=== PATIENT | male | born 1950 | race Caucasian/White ===

== ENCOUNTER 2017-08-09 11:34 | Emergency (ER) | payer MEDICARE, MEDICAID ==
--- NOTE | 2017-08-09 12:08 | ER Document Report ---
ED Respiratory Problem - General Mode of Arrival: Ambulatory Information source: Patient TRAVEL OUTSIDE OF THE [place] IN LAST 30 DAYS: No <DIANA COLEMAN - Last Filed: 08/09/17 14:40> <GUILLAUME BRIDGES - Last Filed: 08/09/17 19:46> - General Chief Complaint: Shortness Of Breath Stated Complaint: SHORTNESS OF BREATH Time Seen by Provider: 08/09/17 12:07 Notes: Patient is a 66 year old male that presents to the emergency department today with complaints of left sided chest pain with associated shortness of breath beginning this morning prior to arrival. Patient has a history of spontaneous pneumothoraces in the past along with a history of COPD and emphysema. Patient states he ate eggs this morning at 0900. Patient denies a cough or history of [place] /CVA. (DIANA COLEMAN) - Related Data Allergies/Adverse Reactions: rofecoxib [From Vioxx] Allergy (Severe, Verified 12/14/15 01:25) PALPITATIONS Sulfa (Sulfonamide Antibiotics) Allergy (Unknown, Verified 12/14/15 01:25) Past Medical History - General Information source: Patient - Social History Smoking Status: Former Smoker - extensive history, stopped smoking after initial pneumothorax Cigarette use (# per day): No Frequency of alcohol use: None Drug Abuse: None Lives with: Family Family History: Reviewed & Not Pertinent - Past Medical History Cardiac Medical History: Reports: Hx Coronary Artery Disease, Hx Heart Attack, Hx Hypertension Pulmonary Medical History: Reports: Hx Bronchitis, Hx COPD, Hx Pneumonia, Other - Hx of spontaneous pneumothoraces Musculoskeltal Medical History: Reports Hx Arthritis Past Surgical History: Reports: Hx Cardiac Catheterization - Immunizations Hx Diphtheria, Pertussis, Tetanus Vaccination: - unknown Hx Pneumococcal Vaccination: 04/30/10 <DIANA COLEMAN - Last Filed: 08/09/17 14:40> Review of Systems - Review of Systems Constitutional: No symptoms reported EENT: No symptoms reported Cardiovascular: See HPI, Chest pain Respiratory: See HPI, Short of breath. denies: Cough Gastrointestinal: No symptoms reported Genitourinary: No symptoms reported Male Genitourinary: No symptoms reported Musculoskeletal: No symptoms reported Skin: No symptoms reported Hematologic/Lymphatic: No symptoms reported Neurological/Psychological: No symptoms reported -: Yes All other systems reviewed and negative <DIANA COLEMAN - Last Filed: 08/09/17 14:40> Physical Exam <DIANA COLEMAN - Last Filed: 08/09/17 14:40> <GUILLAUME BRIDGES - Last Filed: 08/09/17 19:46> - Vital signs Vitals: Resp Pulse Ox 21 H 99 08/09/17 11:45 08/09/17 11:45 - Notes Notes: PHYSICAL EXAM GENERAL: Alert, interacts well. Moderate distress HEAD: Normocephalic, atraumatic. EYES: Pupils equal, round, and reactive to light. Extraocular movements intact. ENT: Oral mucosa moist, tongue midline. NECK: Full range of motion. Supple. Trachea midline. LUNGS: Clear to auscultation bilaterally, no wheezes, rales, or rhonchi. No difference in breath sounds. Tachypneic. Respiratory distress including while sitting upright. HEART: Regular rate and rhythm. No murmurs, gallops, or rubs. ABDOMEN: Soft, epigastric tenderness with palpation. Non-distended. Bowel sounds present in all 4 quadrants. EXTREMITIES: Moves all 4 extremities spontaneously. No edema, radial and dorsalis pedis pulses 2/4 bilaterally. No cyanosis. NEUROLOGICAL: Alert and oriented x3. Normal speech. PSYCH: Normal affect, normal mood. SKIN: Warm, dry, normal turgor. No rashes or lesions noted. (DIANA COLEMAN) Course - Laboratory Result Diagrams: 08/09/17 13:10 08/09/17 13:10 <DIANA COLEMAN - Last Filed: 08/09/17 14:40> - Laboratory Result Diagrams: 08/09/17 13:10 08/09/17 13:10 <GUILLAUME BRIDGES - Last Filed: 08/09/17 19:46> - Re-evaluation Re-evalutation: 08/09/17 13:15 X-ray shows moderate pneumothorax without tension. Patient will have a pigtail catheter placed. Ativan and morphine will be used for pain and anxiety. No procedural sedation will be performed. 08/09/17 14:36 Tolerated procedure well, 8 Fr catheter inserted, gush of air heard, pain and shortness of breath initially improved. Discussed with Dr. Abad, agrees to consult on the patient, is uncertain whether he wants to keep the patient here or transfer due to need for possible pleurodesis. 08/09/17 17:59 Just received a call back from [facility] stating that Dr. Guillaume Ray accepted the patient to the ninth floor bed. They are still waiting to see if there are any beds available and will call us back once that assignment has been made. Currently the physician does not need to talk to me, has accepted the patient based off of the verbal report given by me to nursing and then passed along to him. (GUILLAUME BRIDEGS) - Vital Signs Vital signs: Temp Pulse Resp BP Pulse Ox 97.8 F 11 L 133/50 H 95 08/09/17 11:46 08/09/17 19:02 08/09/17 19:02 08/09/17 19:02 - Laboratory Laboratory results interpreted by me: 08/09/17 08/09/17 13:10 13:10 WBC 11.3 H Seg Neutrophils % 80.4 H Lymphocytes % 12.0 L Absolute Neutrophils 9.1 H Potassium 5.1 H Chloride 97 L Procedures - Chest Tube Left Midclavicular Consent obtained: Yes Chest tube pre-insertion: Sterile PPE donned, Chloraprep applied, Sterile drapes applied Size of [place] Tube (cm): 8 Anesthetic type: 1% Lidocaine mL's of anesthetic: 15 Chest tube post-insertion: Air heller heard, Sutured, Position confirmed w/ CXR, Water seal, Low intermittent suction Chest tube drainage: no Number of attempts: 1 Complications: No <GUILLAUME BRIDGES - Last Filed: 08/09/17 19:46> Critical Care Note - Critical Care Note Total time excluding time spent on procedures (mins): 35 <GUILLAUME BRIDGES - Last Filed: 08/09/17 19:46> Discharge <DIANA COLEMAN - Last Filed: 08/09/17 14:40> <GUILLAUME BRIDGES - Last Filed: 08/09/17 19:46> - Discharge Clinical Impression: Pneumothorax Qualifiers: Pneumothorax type: spontaneous, primary Qualified Code(s): J93.11 - Primary spontaneous pneumothorax Condition: Fair Disposition: [facility] Scribe Attestation: 08/09/17 19:46 I personally performed the services described in the documentation, reviewed and edited the documentation which was dictated to the scribe in my presence, and it accurately records my words and actions. (GUILLAUME BRIDGES) Scribe Documentation - Scribe Written by Lluvia:: Lluvia Mayen, 08/09/2017 1514 acting as scribe for :: Love <DIANA COLEMAN - Last Filed: 08/09/17 14:40>
--- NOTE | 2017-08-09 13:10 | RADIOLOGY REPORT (SQ) ---
EXAM DESCRIPTION: CHEST PA/LAT COMPLETED DATE/TIME: 08/09/2017 12:43 pm REASON FOR STUDY: possible L pneumothorax COMPARISON: December 2015 EXAM PARAMETERS: NUMBER OF VIEWS: two views TECHNIQUE: Digital Frontal and Lateral radiographic views of the chest acquired. RADIATION DOSE: NA LIMITATIONS: none FINDINGS: LUNGS AND PLEURA: A moderate size pneumothorax on the left is identified. The right lung is clear and well expanded. Chronic appearing changes are again identified. Again there is evidence for obstructive lung disease. MEDIASTINUM AND HILAR STRUCTURES: No masses or contour abnormalities. HEART AND VASCULAR STRUCTURES: Heart normal size. No evidence for failure. BONES: No acute findings. HARDWARE: None in the chest. OTHER: No other significant finding. IMPRESSION: Moderate size pneumothorax on the left as noted above. Other findings as noted above COMMENT: Pertinent findings on the imaging study reported as a CRITICAL RESULT to GUILLAUME Schneider t13:02 on 08/09/2017. Category of Critical Result: Left-sided pneumothorax TECHNICAL DOCUMENTATION: JOB ID: [id number] [employer]- All Rights Reserved
[2017-08-09] MEDS ORDERED: LORAZEPAM INJ 2 MG/1 ML VIAL IV ONE (13:14)
[2017-08-09] MEDS ORDERED: MORPHINE SULFATE 10 MG/ML INJ IV ONE ×3 (13:14→18:00)
[2017-08-09 13:23] LABS: ABSOLUTE BASOPHILS # (AUTO) 0.1 10^3/uL (0.0-0.2); ABSOLUTE EOSINOPHILS # (AUTO) 0.1 10^3/uL (0.0-0.6); ABSOLUTE LYMPHOCYTES (AUTO) 1.4 10^3/uL (0.5-4.7); ABSOLUTE MONOCYTES (AUTO) 0.7 10^3/uL (0.1-1.4); ABSOLUTE NEUT (AUTO) 9.1 10^3/uL (1.7-8.2); BASOPHILS % (AUTO) 0.6 % (0-2); EOSINOPHILS % (AUTO) 0.7 % (0-6); HEMATOCRIT 44.1 % (37.9-51.0); HEMOGLOBIN 14.7 g/dL (13.5-17.0); MEAN CORPUSCULAR HEMOGLOBIN 29.9 pg (27.0-33.4); MEAN CORPUSCULAR HGB CONC 33.2 g/dL (32.0-36.0); MEAN CORPUSCULAR VOLUME 90 fl (80-97); MONOCYTES % (AUTO) 6.3 % (3-13); PLATELET COUNT 446 10^3/uL (150-450); RED CELL DISTRIBUTION WIDTH 13.8 % (11.5-14.0); SEGMENTED NEUTROPHILS % (AUTO) 80.4 % (42-78); TOTAL CELLS COUNTED % (AUTO) 100 %; WHITE BLOOD COUNT 11.3 10^3/uL (4.0-10.5)
[2017-08-09 13:44] LABS: ALANINE AMINOTRANSFERASE 37 U/L (21-72); ALBUMIN 4.9 g/dL (3.5-5.0); ALKALINE PHOSPHATASE 69 U/L (38-126); ANION GAP 12 (5-19); ASPARTATE AMINO TRANSFERASE 30 U/L (17-59); BILIRUBIN,DIRECT 0.2 mg/dL (0.0-0.4); BILIRUBIN,TOTAL 0.4 mg/dL (0.2-1.3); BLOOD UREA NITROGEN 10 mg/dL (7-20); CALCIUM 10.2 mg/dL (8.4-10.2); CARBON DIOXIDE 29 mmol/L (22-30); CHLORIDE 97 mmol/L (98-107); CREATINE KINASE 89 U/L (55-170); GLUCOSE 108 mg/dL (75-110); LIPASE 114.5 U/L (23-300); POTASSIUM 5.1 mmol/L (3.6-5.0); SODIUM 138.2 mmol/L (137-145); TOTAL PROTEIN 7.8 g/dL (6.3-8.2)
[2017-08-09 13:54] LABS: CREATINE KINASE MB 1.71 ng/mL (<4.55)
[2017-08-09 13:55] LABS: TROPONIN I < 0.012 ng/mL
[2017-08-09] MEDS ORDERED: ONDANSETRON HCL INJ/PF 4 MG/2 ML SDV IV ONE (14:42)
--- NOTE | 2017-08-09 15:57 | RADIOLOGY REPORT (SQ) ---
EXAM DESCRIPTION: CHEST SINGLE VIEW COMPLETED DATE/TIME: 08/09/2017 3:41 pm REASON FOR STUDY: s/p chest tube COMPARISON: Two-view chest 08/09/2017, 12/16/2015 EXAM PARAMETERS: NUMBER OF VIEWS: One view. TECHNIQUE: Single frontal radiographic view of the chest acquired. RADIATION DOSE: NA LIMITATIONS: None. FINDINGS: LUNGS AND PLEURA: Patient is post placement of a left-sided Heimlich tube over the left up per 2nd rib interspace. No persistent left pneumothorax. No pleural effusion. Lungs are well inflated and hyperlucent from obstructive disease. MEDIASTINUM AND HILAR STRUCTURES: No masses. Contour normal. HEART AND VASCULAR STRUCTURES: Heart normal in size. Normal vasculature. BONES: Osteoporotic HARDWARE: None in the chest. OTHER: No other significant finding. IMPRESSION: Interval placement of a left-sided Heimlich tube. Resolved left pneumothorax. Underlying advanced COPD TECHNICAL DOCUMENTATION: JOB ID: [id number] [employer]- All Rights Reserved
--- NOTE | 2017-08-09 16:10 | PDOC CONSULTATION ---
Consultation Consult Date: 08/09/17 Attending physician:: JHONATHAN LUNDBERG Consult reason:: recurrent left oneumothorax History of Present Illness Admission Date/PCP: 08/09/17 14:55 BRADY RODRIGUEZ MD History of Present Illness: KODY TORRES is a 66 year old male, heavy smoker, quit 2 years ago, who presents with shortness of breath and has a hx of three recurrent left pneumothoraces during the past 2 years. A chest Xray has been done today which revealed a left 60% pneumothorax successfully treated by chest tube insertion by the ER physician. Past Medical History Cardiac Medical History: Reports: Coronary Artery Disease, Myocardial Infarction , Hypertension Pulmonary Medical History: Reports: Bronchitis, Chronic Obstructive Pulmonary Disease (COPD), Pneumonia, Other - Hx of spontaneous pneumothoraces Denies: Asthma Neurological Medical History: Denies: Seizures Musculoskeltal Medical History: Reports: Arthritis Psychiatric Medical History: Denies: Depression Hematology: Denies: Anemia Past Surgical History Past Surgical History: Reports: Cardiac Catheterization Denies: Pacemaker Social History Lives with: Family Smoking Status: Former Smoker - extensive history, stopped smoking after initial pneumothorax Frequency of Alcohol Use: None Hx Recreational Drug Use: No Drugs: None Hx Prescription Drug Abuse: No Family History Family History: Reviewed & Not Pertinent Parental Family History Reviewed: No Children Family History Reviewed: No Sibling(s) Family History Reviewed.: No Medication/Allergy Home Medications: Albuterol Sulfate [Ventolin HFA MDI 18 GM] puff IH PRN 08/09/17 Clopidogrel Bisulfate [Plavix 75 mg Tablet] 75 mg PO DAILY 08/09/17 Fluticasone Propionate [Flonase Nasal [place] 50 Mcg/[place] 16 gm] spray NASL 08/09 Omeprazole 20 mg PO ACBRKFST 08/09/17 Allergies/Adverse Reactions: rofecoxib [From Vioxx] Allergy (Severe, Verified 12/14/15 01:25) PALPITATIONS Sulfa (Sulfonamide Antibiotics) Allergy (Unknown, Verified 12/14/15 01:25) Physical Exam Vital Signs: Temp Pulse Resp BP Pulse Ox 97.8 F 14 153/55 H 94 08/09/17 11:46 08/09/17 15:11 08/09/17 15:11 08/09/17 15:11 General appearance: PRESENT: no acute distress Head exam: PRESENT: atraumatic Mouth exam: PRESENT: dry mucosa Neck exam: PRESENT: full ROM Respiratory exam: PRESENT: clear to auscultation robby - with distant breath sounds, other - chest tube in the left hemithorax Cardiovascular exam: PRESENT: other - NSR GI/Abdominal exam: PRESENT: soft Results Impressions: Chest X-Ray 08/09/17 14:43 IMPRESSION: Interval placement of a left-sided Heimlich tube. Resolved left pneumothorax. Underlying advanced COPD Assessment & Plan - Diagnosis (1) Recurrent spontaneous pneumothorax Is this a current diagnosis for this admission?: Yes - Plan Summary Plan Summary: My recommendation it to transfer the patient to a facility or medical center with Thoracic Surgery expertise as the patient will need to undergo left pleurodesis because of his recurrent, spontaneous pneumothorax
[2017-08-09 19:59] VITALS: BP 174/71
--- NOTE | 2017-08-10 10:27 | EKG REPORT ---
SEVERITY:- ABNORMAL ECG - SINUS TACHYCARDIA RIGHT ATRIAL ABNORMALITY NONSPECIFIC INTRAVENTRICULAR CONDUCTION DELAY ABNRM R PROG, CONSIDER ASMI OR LEAD PLACEMENT : Confirmed by: Gabriela Singh 10-Aug-2017 10:26:34
== END 2017-08-09 20:16 | disposition short-term general hospital (02) ==
LOC: ER 11:34 → UNDOADMIN 14:55 → EH 14:55 → UNDODISIN 19:26
PROC: 0W9B00Z Drainage of Left Pleural Cavity with Drainage Device, Open Approach (ICD-10-PCS; principal; 2017-08-09)
DX: J93.11 Primary spontaneous pneumothorax (principal); R06.02 Shortness of breath; I25.10 Atherosclerotic heart disease of native coronary artery without angina pectoris; I10 Essential (primary) hypertension; J44.9 Chronic obstructive pulmonary disease, unspecified; I25.2 Old myocardial infarction; Z88.2 Allergy status to sulfonamides
CPT/HCPCS: 93005; 96376; 99291; 96374; 96375; 36415; 82553; 82550; 83690; 85025; 80053; 84484; 71046; 71045; 93010; 32551; J2270; J2060; J2405

== ENCOUNTER 2018-04-06 10:03 | Inpatient (IN) | payer MEDICARE, MEDICAID ==
[2018-04-06] MEDS ORDERED: METHYLPREDNISOLONE INJ 500 MG VIAL IV ONE (10:15)
[2018-04-06] MEDS ORDERED: IPRATROPIUM/ALBUTEROL 0.5-2.5 MG/3 ML AMPUL NEB ONE ×2 (10:17→12:33)
--- NOTE | 2018-04-06 10:27 | RADIOLOGY REPORT (SQ) ---
EXAM DESCRIPTION: CHEST SINGLE VIEW COMPLETED DATE/TIME: 04/06/2018 10:17 am REASON FOR STUDY: CP COMPARISON: 08/09/2017 chest films EXAM PARAMETERS: NUMBER OF VIEWS: One view. TECHNIQUE: Single frontal radiographic view of the chest acquired. RADIATION DOSE: NA LIMITATIONS: None. FINDINGS: LUNGS AND PLEURA: 50% pneumothorax right side, with mild right to left mediastinal shift. Findings discussed with Dr. Pickett 04/06/2018, at 1015 hours. Partial collapse right lung. No right pleural fluid Left lung hyperinflated and hyperlucent but clear. Old surgical bette along the left upper hilum. No left pneumothorax or pleural effusion. MEDIASTINUM AND HILAR STRUCTURES: No masses. Contour normal. HEART AND VASCULAR STRUCTURES: Heart normal in size. Normal vasculature. BONES: No acute findings. HARDWARE: None in the chest. OTHER: No other significant finding. IMPRESSION: 50% pneumothorax right side with mild right to left mediastinal shift COMMENT: Pertinent findings on the imaging study reported as a CRITICAL RESULT to ROSEANN PICKETT MD at10:15 on 04/06/2018. Category of Critical Result: 50% right pneumothorax with mild right to left mediastinal shift TECHNICAL DOCUMENTATION: JOB ID: [id number] [employer]- All Rights Reserved Reading location - IP/workstation name: [email or web address]
[2018-04-06] MEDS ORDERED: LIDOCAINE 1%/EPINEPHRINE INJ 20 ML VIAL INJ ONE (10:39)
[2018-04-06 10:45] LABS: ABSOLUTE EOSINOPHILS # (AUTO) 0.1 10^3/uL (0.0-0.6); ABSOLUTE LYMPHOCYTES (AUTO) 2.7 10^3/uL (0.5-4.7); ABSOLUTE MONOCYTES (AUTO) 0.6 10^3/uL (0.1-1.4); ABSOLUTE NEUT (AUTO) 5.7 10^3/uL (1.7-8.2); BASOPHILS % (AUTO) 0.5 % (0-2); EOSINOPHILS % (AUTO) 0.7 % (0-6); HEMOGLOBIN 13.7 g/dL (13.5-17.0); LYMPHOCYTES % (AUTO) 29.3 % (13-45); MEAN CORPUSCULAR HEMOGLOBIN 29.7 pg (27.0-33.4); MEAN CORPUSCULAR HGB CONC 33.5 g/dL (32.0-36.0); MEAN CORPUSCULAR VOLUME 89 fl (80-97); PLATELET COUNT 424 10^3/uL (150-450); RED BLOOD COUNT 4.62 10^6/uL (4.35-5.55); RED CELL DISTRIBUTION WIDTH 15.2 % (11.5-14.0); SEGMENTED NEUTROPHILS % (AUTO) 62.5 % (42-78); TOTAL CELLS COUNTED % (AUTO) 100 %; WHITE BLOOD COUNT 9.1 10^3/uL (4.0-10.5)
[2018-04-06] MEDS ORDERED: METHYLPREDNISOLONE INJ 125 MG/2 ML SDV IV ONE (11:00)
[2018-04-06 11:05] LABS: ALANINE AMINOTRANSFERASE 37 U/L (21-72); ALBUMIN 4.7 g/dL (3.5-5.0); ALKALINE PHOSPHATASE 71 U/L (38-126); ANION GAP 9 (5-19); ASPARTATE AMINO TRANSFERASE 35 U/L (17-59); BILIRUBIN,DIRECT 0.4 mg/dL (0.0-0.4); BILIRUBIN,TOTAL 0.7 mg/dL (0.2-1.3); BLOOD UREA NITROGEN 11 mg/dL (7-20); CALCIUM 9.6 mg/dL (8.4-10.2); CARBON DIOXIDE 30 mmol/L (22-30); CHLORIDE 100 mmol/L (98-107); GLUCOSE 115 mg/dL (75-110); POTASSIUM 4.9 mmol/L (3.6-5.0); SODIUM 139.4 mmol/L (137-145); TOTAL PROTEIN 8.4 g/dL (6.3-8.2)
--- NOTE | 2018-04-06 12:19 | ER Document Report ---
ED General - General Chief Complaint: Respiratory Distress Stated Complaint: SHORTNESS OF BREATH Time Seen by Provider: 04/06/18 10:12 TRAVEL OUTSIDE OF THE [place] IN LAST 30 DAYS: No - HPI Patient complains to provider of: Chest pain Onset: Other - This 67-year-old male presents for evaluation of chest pain which feels like previous pneumothoraxes he has had in the past. He has had 4 on the left which required pleurodesis he has had one in the past on the right but states this feels very much like that. He denies any fevers or chills, abdominal pain diarrhea constipation or other symptoms recently. He is no longer smoker but does have COPD which is known. - Related Data Allergies/Adverse Reactions: rofecoxib [From Vioxx] Allergy (Severe, Verified 12/14/15 01:25) PALPITATIONS Sulfa (Sulfonamide Antibiotics) Allergy (Unknown, Verified 12/14/15 01:25) Past Medical History - General Information source: Patient - Social History Smoking Status: Former Smoker Family History: Reviewed & Not Pertinent - Past Medical History Cardiac Medical History: Reports: Hx Coronary Artery Disease, Hx Heart Attack, Hx Hypertension Pulmonary Medical History: Reports: Hx Bronchitis, Hx COPD, Hx Pneumonia Denies: Hx Asthma Neurological Medical History: Denies: Hx Cerebrovascular Accident, Hx Seizures Renal/ Medical History: Denies: Hx Peritoneal Dialysis Musculoskeletal Medical History: Reports Hx Arthritis Psychiatric Medical History: Denies: Hx Depression Past Surgical History: Reports: Hx Cardiac Catheterization. Denies: Hx Pacemaker - Immunizations Hx Diphtheria, Pertussis, Tetanus Vaccination: - unknown Hx Pneumococcal Vaccination: 04/30/10 Review of Systems - Review of Systems -: Yes All other systems reviewed and negative Physical Exam - Vital signs Interpretation: Hypertensive - General General appearance: Appears well In distress: None - HEENT Head: Normocephalic Eyes: Normal Conjunctiva: Normal Cornea: Normal Extraocular movements intact: Yes Eyelashes: Normal Pupils: PERRL - Respiratory Respiratory status: Pursed lip breathing, Tachypnea Chest status: Tender Breath sounds: Decreased air movement Chest palpation: Normal - Cardiovascular Rhythm: Regular Heart sounds: Normal auscultation Murmur: No - Abdominal Inspection: Normal Distension: No distension Tenderness: Nontender Organomegaly: No organomegaly - Back Back: Normal - Extremities General upper extremity: Normal inspection, Nontender, Normal ROM, Normal strength General lower extremity: Normal inspection, Nontender, Normal ROM, Normal strength - Neurological Neuro grossly intact: Yes Cognition: Normal Orientation: AAOx4 Dianna Coma Scale Eye Opening: Spontaneous Mcgregor Coma Scale Verbal: Oriented Dianna Coma Scale Motor: Obeys Commands Dianna Coma Scale Total: 15 Speech: Normal Cranial nerves: Normal Motor strength normal: LUE, RUE, LLE, RLE - Psychological Associated symptoms: Normal affect Course - Re-evaluation Re-evalutation: 04/06/18 12:58 5-year-old man presents for evaluation of chest pain similar to previous pneumothoraxes. On examination the patient does have what appears to be a right-sided pneumothorax, chest x-ray demonstrates right-sided pneumothorax, will obtain EKG administer nebulization as he does have COPD which is known. Due to the unusually high volume in the emergency department have contacted the surgical list in house Dr. Singh for evaluation the patient, he agrees to chest tube placement admission at this time. We will defer transfer. We will plan for chest tube placement and admission to the surgical service. - Laboratory Result Diagrams: 04/06/18 10:28 04/06/18 10:28 Laboratory results interpreted by me: 04/06/18 04/06/18 10:28 10:28 RDW 15.2 H Glucose 115 H Total Protein 8.4 H Discharge - Discharge Clinical Impression: Shortness of breath, Recurrent spontaneous pneumothorax Pneumothorax Qualifiers: Pneumothorax type: unspecified pneumothorax Qualified Code(s): J93.9 - Pneumothorax, unspecified Condition: Stable Disposition: ADMITTED INPATIENT Admitting Provider: Surgicalist Unit Admitted: Surgical Floor
[2018-04-06] MEDS ORDERED: LIDOCAINE 1% INJ-PF (10 MG/ML) 30 ML SDV ONE (12:23)
[2018-04-06] MEDS ORDERED: MIDAZOLAM 2 MG/2 ML INJ IV ONE (12:35)
[2018-04-06] MEDS ORDERED: FENTANYL CITRATE INJ/PF 100 MCG/2 ML AMPUL IV ONE (12:36)
[2018-04-06] MEDS ORDERED: MORPHINE SULFATE 10 MG/ML INJ IV PRN (13:07)
--- NOTE | 2018-04-06 13:59 | PDOC H&P ---
History of Present Illness Admission Date/PCP: 04/06/18 12:36 BRADY RODRIGUEZ MD History of Present Illness: KODY TORRES is a 67 year old male with a long history of spontaneous pneumothoraces and COPD. Patient has had several chest tubes inserted on the left and one previous chest tube on the right side. Patient has had a pleurodesis on the left as well. Patient reports feeling a sharp pain in his right chest and having shortness of breath. He presented to the emergency department because he was suspicious that his "lung may be collapsed". The patient reports chest pain shortness of breath. He denies headache, fevers, chills, nausea, vomiting, melena, hematochezia, abdominal pain, orthostasis, dizziness, blurry vision, malaise, or fatigue. Deep inspiration makes his pain worse, nothing makes it better. Past Medical History Cardiac Medical History: Reports: Coronary Artery Disease, Myocardial Infarction , Hypertension Pulmonary Medical History: Reports: Bronchitis, Chronic Obstructive Pulmonary Disease (COPD), Pneumonia Denies: Asthma Neurological Medical History: Denies: Seizures Musculoskeltal Medical History: Reports: Arthritis Psychiatric Medical History: Denies: Depression Hematology: Denies: Anemia Past Surgical History Past Surgical History: Reports: Cardiac Catheterization, Other - Pleurodesis left lung. Multiple thoracostomy tube placements. Denies: Pacemaker Social History Information Source: Patient Smoking Status: Former Smoker Frequency of Alcohol Use: None Hx Recreational Drug Use: No Drugs: None Hx Prescription Drug Abuse: No Family History Family History: Reviewed & Not Pertinent Parental Family History Reviewed: Yes Children Family History Reviewed: Yes Sibling(s) Family History Reviewed.: Yes Medication/Allergy Home Medications: Albuterol Sulfate [Ventolin HFA MDI 18 GM] puff IH PRN 08/09/17 Clopidogrel Bisulfate [Plavix 75 mg Tablet] 75 mg PO DAILY 08/09/17 Fluticasone Propionate [Flonase Nasal [place] 50 Mcg/[place] 16 gm] spray NASL 08/09 Omeprazole 20 mg PO ACBRKFST 08/09/17 Allergies/Adverse Reactions: rofecoxib [From Vioxx] Allergy (Severe, Verified 12/14/15 01:25) PALPITATIONS Sulfa (Sulfonamide Antibiotics) Allergy (Unknown, Verified 12/14/15 01:25) Review of Systems Constitutional: ABSENT: anorexia, chills, fatigue, fever(s), headache(s), weakness Eyes: ABSENT: visual disturbances Ears: ABSENT: hearing changes Nose, Mouth, and Throat: ABSENT: sore throat Cardiovascular: PRESENT: chest pain, orthropnea, palpitations Respiratory: PRESENT: cough, dyspnea Gastrointestinal: ABSENT: abdominal pain, bloating, constipation, diarrhea, heartburn, hematemesis, hematochezia, melena, nausea, vomiting Genitourinary: ABSENT: dysuria Musculoskeletal: PRESENT: back pain Integumentary: ABSENT: pruritus, rash Neurological: ABSENT: abnormal gait, abnormal movements, confusion, convulsions , dizziness, paresthesias Psychiatric: ABSENT: anxiety, depression Endocrine: ABSENT: cold intolerance, heat intolerance Hematologic/Lymphatic: ABSENT: easy bleeding, easy bruising Physical Exam Vital Signs: Temp Pulse Resp BP Pulse Ox 98 14 132/69 H 100 04/06/18 12:40 04/06/18 13:01 04/06/18 13:01 04/06/18 13:01 General appearance: PRESENT: no acute distress Head exam: PRESENT: atraumatic, normocephalic Eye exam: PRESENT: EOMI, PERRLA. ABSENT: scleral icterus Mouth exam: PRESENT: moist, neck supple Teeth exam: PRESENT: poor dentation Neck exam: ABSENT: lymphadenopathy, meningismus, tenderness, thyromegaly, tracheal deviation Respiratory exam: PRESENT: clear to auscultation robby, wheezes. ABSENT: accessory muscle use, chest wall tenderness Cardiovascular exam: PRESENT: RRR Pulses: PRESENT: normal radial pulses Vascular exam: PRESENT: normal capillary refill. ABSENT: pallor GI/Abdominal exam: PRESENT: soft. ABSENT: distended, firm, guarding, tenderness Rectal exam: PRESENT: deferred Extremities exam: ABSENT: clubbing, pedal edema Musculoskeletal exam: ABSENT: deformity Neurological exam: PRESENT: alert, awake, oriented to person, oriented to place , oriented to time, oriented to situation, CN II-XII grossly intact. ABSENT: motor sensory deficit Psychiatric exam: ABSENT: agitated, anxious, depressed Focused psych exam: ABSENT: delusional Skin exam: ABSENT: cyanosis, erythema, jaundice, pallor Assessment & Plan - Diagnosis (1) Recurrent spontaneous pneumothorax Is this a current diagnosis for this admission?: Yes - Plan Summary Plan Summary: This is a 67-year-old male with a recurrent right-sided spontaneous pneumothorax. I have placed a chest tube in the emergency department. The patient will require inpatient admission for monitoring of the chest tube. Patient had a small air leak after tube placement today. I have discussed with the patient the need for possible pleurodesis on the right. That procedure is not performed at this hospital. Currently the patient does not wish to be transferred to another facility. He wishes to give the tube time to perform its work, with transfer used as a last resort. I will abide by the patient's wishes and admitted to the floor. Continue pain medications. Chest tube to 20 cm of water suction.
--- NOTE | 2018-04-06 14:05 | Operative Report ---
Nonrecallable Operative Report DATE OF SURGERY: 04/06/18 PREOPERATIVE DIAGNOSIS: Recurrent spontaneous right-sided pneumothorax POSTOPERATIVE DIAGNOSIS: Same as above OPERATION: Right tube thoracostomy SURGEON: SRUTHI PACHECO ANESTHESIA: Moderate Sedation TISSUE REMOVED OR ALTERED: None COMPLICATIONS: None apparent ESTIMATED BLOOD LOSS: Minimal PROCEDURE: Drains/implants: 28 Arabic chest tube. Procedure in detail: After informed consent was obtained, the patient was sat in the upright position in the emergency department. 6 mg of Versed and 100 mcg of fentanyl were administered over the course of the procedure. The area of the right chest was prepped and draped in a normal sterile fashion. 1% lidocaine was used to infiltrate the skin of the lateral chest wall at the mid axillary line. An incision was created in the skin. Dissection was carried down to the chest wall using blunt dissection. A Negrita clamp was used over top of a rib to enter the chest wall bluntly. The Negrita was spread and a large heller of air was encountered. The chest tube was inserted after a finger sweep was performed. The chest tube was directed superiorly and posteriorly. The tube was sutured to the skin using 0 silk suture 2. A dressing was placed, and the procedure was concluded. The tube was attached to a Pleur-evac which provided 20 cm of water suction. At this time the procedure was concluded. All sponge, instrument, and needle counts were correct. Condition: Stable.
--- NOTE | 2018-04-06 14:19 | RADIOLOGY REPORT (SQ) ---
EXAM DESCRIPTION: CHEST SINGLE VIEW COMPLETED DATE/TIME: 04/06/2018 1:55 pm REASON FOR STUDY: chest tube insertion COMPARISON: Chest films 04/06/2018 1010 hours, 08/09/2017, 12/16/2015 EXAM PARAMETERS: NUMBER OF VIEWS: One view. TECHNIQUE: Single frontal radiographic view of the chest acquired. RADIATION DOSE: NA LIMITATIONS: None. FINDINGS: LUNGS AND PLEURA: Lungs are hyperinflated and hyperlucent from obstructive disease. Resol ution of the right pneumothorax with placement of a right large bore chest tube. MEDIASTINUM AND HILAR STRUCTURES: No significant mediastinal shift HEART AND VASCULAR STRUCTURES: Heart normal in size. Normal vasculature. BONES: No acute findings. HARDWARE: Right large bore chest tube. No pneumothorax OTHER: No other significant finding. IMPRESSION: Right large bore chest tube. No pneumothorax TECHNICAL DOCUMENTATION: JOB ID: [id number] [employer]- All Rights Reserved Reading location - IP/workstation name: [email or web address]
[2018-04-06] MEDS: OXYCODONE-ACETAMINOPHEN 5-325 MG TABLET PO PRN (18:13)
[2018-04-07] MEDS ORDERED: ALBUTEROL SULFATE HFA (90 MCG/PUFF) 8 GM MDI (1 MDI/ER DISP) IH PRN (02:25)
[2018-04-07] MEDS ORDERED: ALBUTEROL SULFATE HFA (90 MCG/PUFF) 200 PUFF/8.5 GM MDI IH PRN (02:34)
--- NOTE | 2018-04-07 05:18 | EKG REPORT ---
SEVERITY:- ABNORMAL ECG - SINUS RHYTHM RIGHT ATRIAL ABNORMALITY RBBB AND LPFB : Confirmed by: Gabriela Singh 07-Apr-2018 05:18:10
[2018-04-07] MEDS: LANSOPRAZOLE 15 MG TAB.RAP.DR PO SCH (05:30)
[2018-04-07] MEDS: OXYCODONE-ACETAMINOPHEN 5-325 MG TABLET PO PRN (06:18)
[2018-04-07] MEDS ORDERED: (PENDING PHARMACY ID) (Tiotropium Bromide [Spiriva Respimat] 2 PUFF) IH SCH (08:00)
[2018-04-07] MEDS: ENOXAPARIN SODIUM INJ 40 MG/0.4 ML DISP.SYRIN SUBCUT SCH (09:17)
[2018-04-07] MEDS: AMLODIPINE BESYLATE 2.5 MG TABLET PO SCH (09:19)
[2018-04-07] MEDS: CLOPIDOGREL BISULFATE 75 MG TABLET PO SCH (09:20)
[2018-04-07] MEDS: OMEGA-3 ACID ETHYL ESTERS 1 GM CAPSULE PO SCH (09:20)
[2018-04-07] MEDS: ACETAMINOPHEN 325 MG TABLET PO SCH ×2 (09:20→23:32)
--- NOTE | 2018-04-07 09:47 | RADIOLOGY REPORT (SQ) ---
EXAM DESCRIPTION: CHEST SINGLE VIEW COMPLETED DATE/TIME: 04/07/2018 9:30 am REASON FOR STUDY: PTX COMPARISON: 04/06/2018 NUMBER OF VIEWS: One view. TECHNIQUE: Single frontal radiographic image of the chest acquired. LIMITATIONS: None. FINDINGS: LUNGS AND PLEURA: Stable appearance. Right-sided chest tube remains in place. No pneumot horax is identified. MEDIASTINUM AND HILAR STRUCTURES: Stable heart size and mediastinal structures. HEART AND VASCULAR STRUCTURES: Stable appearance. BONES: No acute findings. HARDWARE: None in the chest. OTHER: No other significant finding. IMPRESSION: STABLE APPEARANCE OF THE CHEST. TECHNICAL DOCUMENTATION: JOB ID: [id number] [employer]- All Rights Reserved Reading location - IP/workstation name: [email or web address]
[2018-04-07] MEDS ORDERED: C E ZINC COPPER PO SCH (10:00)
[2018-04-07] MEDS ORDERED: LUT PO SCH (10:00)
[2018-04-07] MEDS ORDERED: (PENDING PHARMACY ID) (Omega-3 Fatty Acids/Fish Oil [Fish Oil 1,000 Mg Capsule] 1 EACH) PO SCH (10:00)
[2018-04-07] MEDS ORDERED: (PENDING PHARMACY ID) (Acetaminophen [Tylenol Arthritis 650 Mg Tablet] 650 MG) PO SCH (10:00)
[2018-04-07] MEDS ORDERED: OMEGA3S PO SCH (10:00)
[2018-04-07] MEDS ORDERED: [UNRECOGNIZED DRUG - OTHER] PO SCH (10:00)
[2018-04-07] MEDS: ALBUTEROL SULFATE 0.083% NEB 2.5 MG/3 ML AMPUL NEB PRN (15:01)
[2018-04-07] MEDS: ALPRAZOLAM 0.25 MG TABLET PO PRN (16:05)
[2018-04-07] MEDS: DOCUSATE SODIUM 100 MG CAPSULE PO PRN (17:38)
[2018-04-07] MEDS: ACETAMINOPHEN 325 MG TABLET PO PRN (17:38)
[2018-04-07] MEDS: FLUTICASONE NASAL SPRAY 50 MCG/SPRY 120 SPRAY/16 GM NASL SCH (17:39)
--- NOTE | 2018-04-07 17:51 | PDOC PROGRESS REPORT ---
Subjective Progress Note for:: 04/07/18 Subjective:: Pains at the chest tube site Reason For Visit: SPONTANEOUS PTX Physical Exam Vital Signs: Temp Pulse Resp BP Pulse Ox 97.7 F 78 20 133/46 H 94 04/07/18 12:13 04/07/18 14:57 04/07/18 14:57 04/07/18 12:13 04/07/18 14:57 Intake & Output 04/06/18 04/07/18 04/08/18 06:59 06:59 06:59 Intake Total 500 Output Total 150 Balance 350 Weight 52.163 kg Exam: Chest tube with no air leak. Minimal serosanguinous drainage Results Impressions: Chest X-Ray 04/07/18 06:00 IMPRESSION: STABLE APPEARANCE OF THE CHEST. Assessment & Plan - Diagnosis (1) Recurrent spontaneous pneumothorax Is this a current diagnosis for this admission?: Yes - Time Time Spent with patient: 15-24 minutes - Inpatient Certification Medical Necessity: Need Close Monitoring Due to Risk of Patient Decompensation, Need For Continuous Telemetry Monitoring, Need for Pain Control, Risk of Complication if Not Cared For in Hospital - Plan Summary Plan Summary: Right lung appears fully re-expanded D/C chest tube suction and repeat CXR in am Possible D/C Chest tube in 24-48 hrs.
[2018-04-08] MEDS: ALBUTEROL SULFATE 0.083% NEB 2.5 MG/3 ML AMPUL NEB PRN ×2 (04:33→13:18)
[2018-04-08] MEDS: LANSOPRAZOLE 15 MG TAB.RAP.DR PO SCH (05:56)
[2018-04-08] MEDS: OXYCODONE-ACETAMINOPHEN 5-325 MG TABLET PO PRN (05:56)
[2018-04-08] MEDS: DOCUSATE SODIUM 100 MG CAPSULE PO PRN (05:56)
[2018-04-08] MEDS: CLOPIDOGREL BISULFATE 75 MG TABLET PO SCH (09:16)
[2018-04-08] MEDS: ACETAMINOPHEN 325 MG TABLET PO SCH ×2 (09:16→21:51)
[2018-04-08] MEDS: OMEGA-3 ACID ETHYL ESTERS 1 GM CAPSULE PO SCH (09:16)
[2018-04-08] MEDS: AMLODIPINE BESYLATE 2.5 MG TABLET PO SCH (09:16)
[2018-04-08] MEDS: ENOXAPARIN SODIUM INJ 40 MG/0.4 ML DISP.SYRIN SUBCUT SCH (09:17)
[2018-04-08] MEDS: POLYETHYLENE GLYCOL 3350 POWDER 17 GM/1 PACKET PO PRN (09:33)
--- NOTE | 2018-04-08 09:39 | RADIOLOGY REPORT (SQ) ---
EXAM DESCRIPTION: CHEST SINGLE VIEW COMPLETED DATE/TIME: 04/08/2018 9:21 am REASON FOR STUDY: chest tube right pneumothorax COMPARISON: 04/07/2018. 12/16/2015. NUMBER OF VIEWS: One view. TECHNIQUE: Single frontal radiographic view of the chest acquired. LIMITATIONS: None. FINDINGS: LUNGS AND PLEURA: COPD with apical scar, as before. Small persistent apical pneumothorax is likely, chest tube in place without change. MEDIASTINUM AND HILAR STRUCTURES: No masses. Contour normal. HEART AND VASCULAR STRUCTURES: Heart normal in size. Normal vasculature. BONES: No acute findings. HARDWARE: None in the chest. OTHER: No other significant finding. IMPRESSION: Stable chest. Chest tube remains in place with suspected small persistent right apical pneumothorax. TECHNICAL DOCUMENTATION: JOB ID: [id number] [employer]- All Rights Reserved Reading location - IP/workstation name: [email or web address]
--- NOTE | 2018-04-08 10:49 | PDOC PROGRESS REPORT ---
Subjective Progress Note for:: 04/08/18 Subjective:: No complaints; poor cough Reason For Visit: SPONTANEOUS PTX Physical Exam Vital Signs: Temp Pulse Resp BP Pulse Ox 97.9 F 92 18 147/74 H 98 04/08/18 07:58 04/08/18 07:58 04/08/18 07:58 04/08/18 07:58 04/08/18 07:58 Intake & Output 04/07/18 04/08/18 04/09/18 06:59 06:59 06:59 Intake Total 500 200 Output Total 150 Balance 350 200 Weight 52.163 kg General appearance: PRESENT: no acute distress Respiratory exam: PRESENT: other - Accessory muscles of respiration deployed; lung sounds clear bilaterally; chest tube interrogated; minimal fluid in drain receptacle; no fluctuation , no air leak Results Impressions: Chest X-Ray 04/08/18 07:00 IMPRESSION: Stable chest. Chest tube remains in place with suspected small persistent right apical pneumothorax. Assessment & Plan - Diagnosis (1) Pneumothorax Qualifiers: Pneumothorax type: unspecified pneumothorax Qualified Code(s): J93.9 - Pneumothorax, unspecified Is this a current diagnosis for this admission?: Yes Plan: Impression: 1. Status post right thoracostomy tube placement for recurrent right sided pneumothorax; today's chest x-ray shows lung expanded; no air leak; no fluctuation in chest tube 2. We will place chest tube to waterseal; follow clinically; repeat chest x- ray this evening, PA and lateral. 3. If patient fails thoracostomy tube management, VATS procedure may be required. This was explained to the patient.
[2018-04-08] MEDS: ACETAMINOPHEN 325 MG TABLET PO PRN (15:58)
[2018-04-08] MEDS ORDERED: BISACODYL 10 MG SUPP.RECT PR ONE (17:00)
--- NOTE | 2018-04-08 19:34 | RADIOLOGY REPORT (SQ) ---
EXAM DESCRIPTION: CHEST 2 VIEWS COMPLETED DATE/TIME: 04/08/2018 7:13 pm REASON FOR STUDY: Interval change in right pneumothorax COMPARISON: 04/08/2018 EXAM PARAMETERS: NUMBER OF VIEWS: two views TECHNIQUE: Digital Frontal and Lateral radiographic views of the chest acquired. RADIATION DOSE: NA LIMITATIONS: none FINDINGS: LUNGS AND PLEURA: Lungs are hyperexpanded. No residual pneumothorax is appreciated. No i nfiltrate or effusion. MEDIASTINUM AND HILAR STRUCTURES: No masses or contour abnormalities. HEART AND VASCULAR STRUCTURES: Heart normal size. No evidence for failure. BONES: No acute findings. HARDWARE: Thoracotomy tube on the right. OTHER: No other significant finding. IMPRESSION: Chronic lung changes. Thoracotomy tube remains in place. TECHNICAL DOCUMENTATION: JOB ID: [id number] [employer]- All Rights Reserved Reading location - IP/workstation name: [email or web address]
[2018-04-08] MEDS: ONDANSETRON 4 MG TAB.RAPDIS PO PRN (20:10)
[2018-04-08] MEDS: FLUTICASONE NASAL SPRAY 50 MCG/SPRY 120 SPRAY/16 GM NASL SCH (20:13)
[2018-04-09] MEDS: ACETAMINOPHEN 325 MG TABLET PO PRN (04:15)
[2018-04-09] MEDS: DOCUSATE SODIUM 100 MG CAPSULE PO PRN (06:54)
[2018-04-09] MEDS: LANSOPRAZOLE 15 MG TAB.RAP.DR PO SCH (06:54)
[2018-04-09] MEDS: ENOXAPARIN SODIUM INJ 40 MG/0.4 ML DISP.SYRIN SUBCUT SCH (09:06)
--- NOTE | 2018-04-09 09:26 | RADIOLOGY REPORT (SQ) ---
EXAM DESCRIPTION: CHEST 2 VIEWS COMPLETED DATE/TIME: 04/09/2018 9:12 am REASON FOR STUDY: f/u ptx COMPARISON: 04/08/2018. FINDINGS: Two view chest, portably obtained AP and lateral. Chest tube to the right apex. Artifact versus persistent tiny apical pneumothorax. Lungs otherwise clear. Stable cardiomediastinal silhouette. IMPRESSION: As above. Thoracostomy tube remains in place. Tiny persistent apical pneumothorax is n ot entirely excluded. TECHNICAL DOCUMENTATION: JOB ID: [id number] Reading location - IP/workstation name: [email or web address]
[2018-04-09] MEDS: ALBUTEROL SULFATE 0.083% NEB 2.5 MG/3 ML AMPUL NEB PRN ×2 (09:34→20:22)
[2018-04-09] MEDS: CLOPIDOGREL BISULFATE 75 MG TABLET PO SCH (10:12)
[2018-04-09] MEDS: ACETAMINOPHEN 325 MG TABLET PO SCH ×2 (10:12→21:10)
[2018-04-09] MEDS: AMLODIPINE BESYLATE 2.5 MG TABLET PO SCH (10:12)
[2018-04-09] MEDS: OMEGA-3 ACID ETHYL ESTERS 1 GM CAPSULE PO SCH (10:12)
[2018-04-09] MEDS ORDERED: BISACODYL 10 MG SUPP.RECT PR ONE (11:00)
[2018-04-09] MEDS: ONDANSETRON 4 MG TAB.RAPDIS PO PRN (13:36)
[2018-04-09] MEDS: POLYETHYLENE GLYCOL 3350 POWDER 17 GM/1 PACKET PO PRN (15:35)
[2018-04-09] MEDS: OXYCODONE-ACETAMINOPHEN 5-325 MG TABLET PO PRN (15:35)
--- NOTE | 2018-04-09 16:00 | PDOC PROGRESS REPORT ---
Subjective Progress Note for:: 04/09/18 Subjective:: This is a 67-year-old male with a spontaneous right-sided pneumothorax. The patient underwent tube thoracostomy in the emergency department. Today, he reports pain in the upper portion of his right chest. He denies shortness of breath. He denies abdominal pain, dizziness, orthostasis, fatigue, malaise, blurry vision, headache. Reason For Visit: SPONTANEOUS PTX Physical Exam Vital Signs: Temp Pulse Resp BP Pulse Ox 98.4 F 97 16 150/61 H 94 04/09/18 11:30 04/09/18 11:30 04/09/18 11:30 04/09/18 11:30 04/09/18 11:30 Intake & Output 04/08/18 04/09/18 04/10/18 06:59 06:59 06:59 Intake Total 200 577 Balance 200 577 Weight 57.2 kg 56 kg General appearance: PRESENT: no acute distress, cooperative Head exam: PRESENT: atraumatic, normocephalic Eye exam: PRESENT: EOMI, PERRLA. ABSENT: scleral icterus Mouth exam: PRESENT: moist, neck supple Neck exam: ABSENT: lymphadenopathy, meningismus, tenderness, thyromegaly, tracheal deviation Respiratory exam: PRESENT: crackles, other - Right chest tube in place with obvious air leak today. Currently on waterseal.. ABSENT: accessory muscle use , chest wall tenderness, wheezes Cardiovascular exam: PRESENT: RRR Pulses: PRESENT: normal radial pulses Vascular exam: PRESENT: normal capillary refill. ABSENT: pallor GI/Abdominal exam: PRESENT: soft. ABSENT: distended, tenderness Extremities exam: ABSENT: clubbing, pedal edema Musculoskeletal exam: ABSENT: deformity Neurological exam: PRESENT: alert, awake, oriented to person, oriented to place , oriented to time, oriented to situation, CN II-XII grossly intact. ABSENT: motor sensory deficit Psychiatric exam: ABSENT: agitated, anxious, depressed Focused psych exam: ABSENT: delusional Skin exam: ABSENT: cyanosis, erythema, jaundice Results Impressions: Chest X-Ray 04/09/18 07:00 IMPRESSION: As above. Thoracostomy tube remains in place. Tiny persistent apical pneumothorax is not entirely excluded. Assessment & Plan - Diagnosis (1) Recurrent spontaneous pneumothorax Is this a current diagnosis for this admission?: Yes - Plan Summary Plan Summary: This is a 67-year-old male with a recurrent right spontaneous pneumothorax. The patient does have an air leak on exam today. I will order a CT scan to evaluate the chest tube's placement, to ensure that it is evacuating the pleural space adequately. If there is no resolution of his pneumothorax, he may require transfer for thoracic surgery evaluation.
--- NOTE | 2018-04-09 17:03 | RADIOLOGY REPORT (SQ) ---
EXAM DESCRIPTION: CT CHEST WITHOUT COMPLETED DATE/TIME: 04/09/2018 4:53 pm REASON FOR STUDY: spontaneous right PTX. Evaluate for blebs. COMPARISON: Multiple previous chest films dating back to 2007, most recently 04/09/2018 TECHNIQUE: CT scan performed of the chest without intravenous contrast. Images reviewed with lung, soft tissue and bone windows. Reconstructed coronal and sagittal MPR images reviewed. All images st ored on PACS. All CT scanners at this facility use dose modulation, iterative reconstruction, and/or weight based d osing when appropriate to reduce radiation dose to as low as reasonably achievable (ALARA). [facility]: Dose Right [facility]: CareDose [facility]: Dose Right [facility]: Teradose 4D [facility]: [employer] RADIATION DOSE: CT Rad equipment meets quality standard of care and radiation dose reduction techniq ues were employed. CTDIvol: 7.0 mGy. DLP: 302 mGy-cm. mGy. LIMITATIONS: No technical limitations. FINDINGS: LUNGS AND PLEURA: A right-sided large bore chest tube is present with the tip at the apex right hemithorax. There a persistent tiny anterior pneumothorax. Minimal right chest wall air. Bibasilar atelectasis is present right greater than left. No pleural effusions. There scarring at the bilateral lung apices and in the superior segments of the bilateral lower lobes . HILAR AND MEDIASTINAL STRUCTURES: No identified masses or abnormal nodes. No obvious aneurysm. HEART AND VASCULAR STRUCTURES: No aneurysm. No pericardial effusion. Enlarged main pulmonary artery from pulmonary hypertension UPPER ABDOMEN: No significant findings. Limited exam. THYROID AND OTHER SOFT TISSUES: No masses. No adenopathy. BONES: No significant finding. HARDWARE: Right chest tube OTHER: No other significant findings. IMPRESSION: No large bullae or blebs are identified. Bibasilar atelectasis. Tiny right anterior pneumothorax. Right chest tube in good positioning Biapical scarring with nodular scarring in the bilateral superior segments lower lobes. TECHNICAL DOCUMENTATION: JOB ID: [id number] Quality ID # [id number]: Final reports with documentation of one or more dose reduction techniques (e.g., Au tomated exposure control, adjustment of the mA and/or kV according to patient size, use of iterative reconstruction technique) 2010 [employer]- All Rights Reserved Reading location - IP/workstation name: [email or web address]
[2018-04-09] MEDS: FLUTICASONE NASAL SPRAY 50 MCG/SPRY 120 SPRAY/16 GM NASL SCH (17:42)
[2018-04-10] MEDS: OXYCODONE-ACETAMINOPHEN 5-325 MG TABLET PO PRN ×2 (05:48→17:31)
[2018-04-10] MEDS: LANSOPRAZOLE 15 MG TAB.RAP.DR PO SCH (05:49)
[2018-04-10] MEDS: DOCUSATE SODIUM 100 MG CAPSULE PO PRN (05:49)
[2018-04-10] MEDS: ALBUTEROL SULFATE 0.083% NEB 2.5 MG/3 ML AMPUL NEB PRN ×2 (08:24→17:55)
--- NOTE | 2018-04-10 08:31 | RADIOLOGY REPORT (SQ) ---
EXAM DESCRIPTION: CHEST SINGLE VIEW COMPLETED DATE/TIME: 04/10/2018 8:18 am REASON FOR STUDY: chest tube right pneumothorax COMPARISON: 04/09/2018 EXAM PARAMETERS: NUMBER OF VIEWS: One view. TECHNIQUE: Single frontal radiographic view of the chest acquired. RADIATION DOSE: NA LIMITATIONS: None. FINDINGS: LUNGS AND PLEURA: Stable small right apical-upper lobe pneumothorax. Findings of COPD. Stable right apical-bilateral lower lobe scarring/fibrosis. No pleural effusion. MEDIASTINUM AND HILAR STRUCTURES: No masses. Contour normal. HEART AND VASCULAR STRUCTURES: Heart normal in size. Normal vasculature. BONES: No acute findings. HARDWARE: Right chest tube remains in place. OTHER: No other significant finding. IMPRESSION: 1. No significant interval changes since the prior study dated 04/09/2018. Right chest tube remains in place. Stable small right anterior pneumothorax. TECHNICAL DOCUMENTATION: JOB ID: [id number] [employer]- All Rights Reserved Reading location - IP/workstation name: [email or web address]
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
[2018-04-10] MEDS: CLOPIDOGREL BISULFATE 75 MG TABLET PO SCH (09:28)
[2018-04-10] MEDS: ACETAMINOPHEN 325 MG TABLET PO SCH ×2 (09:28→21:56)
[2018-04-10] MEDS: OMEGA-3 ACID ETHYL ESTERS 1 GM CAPSULE PO SCH (09:28)
[2018-04-10] MEDS: ENOXAPARIN SODIUM INJ 40 MG/0.4 ML DISP.SYRIN SUBCUT SCH (09:29)
[2018-04-10] MEDS: AMLODIPINE BESYLATE 2.5 MG TABLET PO SCH (09:29)
[2018-04-10 11:07] LABS: ABSOLUTE EOSINOPHILS # (AUTO) 0.1 10^3/uL (0.0-0.6); ABSOLUTE LYMPHOCYTES (AUTO) 1.7 10^3/uL (0.5-4.7); ABSOLUTE MONOCYTES (AUTO) 1.2 10^3/uL (0.1-1.4); ABSOLUTE NEUT (AUTO) 10.3 10^3/uL (1.7-8.2); BASOPHILS % (AUTO) 0.3 % (0-2); EOSINOPHILS % (AUTO) 0.8 % (0-6); LYMPHOCYTES % (AUTO) 12.7 % (13-45); MEAN CORPUSCULAR HEMOGLOBIN 30.5 pg (27.0-33.4); MEAN CORPUSCULAR HGB CONC 34.4 g/dL (32.0-36.0); MEAN CORPUSCULAR VOLUME 89 fl (80-97); MONOCYTES % (AUTO) 8.6 % (3-13); PLATELET COUNT 388 10^3/uL (150-450); RED BLOOD COUNT 3.95 10^6/uL (4.35-5.55); RED CELL DISTRIBUTION WIDTH 14.7 % (11.5-14.0); SEGMENTED NEUTROPHILS % (AUTO) 77.6 % (42-78); TOTAL CELLS COUNTED % (AUTO) 100 %; WHITE BLOOD COUNT 13.3 10^3/uL (4.0-10.5)
[2018-04-10 11:28] LABS: ANION GAP 12 (5-19); BLOOD UREA NITROGEN 12 mg/dL (7-20); CALCIUM 9.3 mg/dL (8.4-10.2); CARBON DIOXIDE 31 mmol/L (22-30); CHLORIDE 92 mmol/L (98-107); GLUCOSE 134 mg/dL (75-110); SODIUM 134.5 mmol/L (137-145)
[2018-04-10] MEDS: LEVOFLOXACIN 500 MG TABLET PO SCH (12:10)
[2018-04-10] MEDS: FLUTICASONE/SALMETEROL DISKUS 250-50 MCG/DOSE IH SCH ×2 (12:10→21:56)
[2018-04-10] MEDS: FLUTICASONE NASAL SPRAY 50 MCG/SPRY 120 SPRAY/16 GM NASL SCH (17:31)
[2018-04-10] MEDS: ALPRAZOLAM 0.25 MG TABLET PO PRN (21:55)
[2018-04-11] MEDS: LANSOPRAZOLE 15 MG TAB.RAP.DR PO SCH (06:14)
[2018-04-11] MEDS: OXYCODONE-ACETAMINOPHEN 5-325 MG TABLET PO PRN (08:09)
[2018-04-11] MEDS: ENOXAPARIN SODIUM INJ 40 MG/0.4 ML DISP.SYRIN SUBCUT SCH (09:17)
[2018-04-11] MEDS: FLUTICASONE/SALMETEROL DISKUS 250-50 MCG/DOSE IH SCH (09:20)
[2018-04-11] MEDS: LEVOFLOXACIN 500 MG TABLET PO SCH (09:20)
[2018-04-11] MEDS: AMLODIPINE BESYLATE 2.5 MG TABLET PO SCH (09:20)
[2018-04-11] MEDS: OMEGA-3 ACID ETHYL ESTERS 1 GM CAPSULE PO SCH (09:20)
[2018-04-11] MEDS: CLOPIDOGREL BISULFATE 75 MG TABLET PO SCH (09:20)
[2018-04-11] MEDS: ACETAMINOPHEN 325 MG TABLET PO SCH (09:20)
--- NOTE | 2018-04-11 09:20 | RADIOLOGY REPORT (SQ) ---
EXAM DESCRIPTION: CHEST SINGLE VIEW COMPLETED DATE/TIME: 04/11/2018 8:43 am REASON FOR STUDY: chest tube right pneumothorax COMPARISON: 04/10/2018. NUMBER OF VIEWS: One view. TECHNIQUE: Single frontal radiographic view of the chest acquired. LIMITATIONS: None. FINDINGS: LUNGS AND PLEURA: Stable right chest tube. No change in the small right apical pneumothor ax. Chronic scarring, particularly in the lung apices. No focal infiltrates. No pleural effusion. A ttenuated blood vessels and flattened karan-diaphragms. MEDIASTINUM AND HILAR STRUCTURES: No masses. Contour normal. HEART AND VASCULAR STRUCTURES: Heart normal in size. Normal vasculature. BONES: No acute findings. HARDWARE: None in the chest. OTHER: No other significant finding. IMPRESSION: COPD. STABLE RIGHT CHEST TUBE AND NO CHANGE IN THE SMALL RIGHT APICAL PNEUMOTHORAX. TECHNICAL DOCUMENTATION: JOB ID: [id number] [employer]- All Rights Reserved Reading location - IP/workstation name: [email or web address]
[2018-04-11] MEDS: POLYETHYLENE GLYCOL 3350 POWDER 17 GM/1 PACKET PO PRN (11:43)
--- NOTE | 2018-04-11 13:45 | PROGRESS NOTE E ---
Progress Note NAME: KODY TORRES : 1950 AGE: 67Y DATE: 04/11/2018 ROOM: 414 SUBJECTIVE: The patient is a 67-year-old male who came in with pneumothorax right side spontaneous, recurrent, second time. First time was in September 2017. History of recurrent pneumothorax on the left side status post VATS and pleurodesis. The patient was still coughing yellow-green phlegm, seems to be getting less. Started on Levaquin 500 mg tablet daily. Appeared to tolerate the Levaquin tablet and Advair 250/50 inhaler 1 puff b.i.d. Denies any fever, chills, increasing cough or hemoptysis and no chest tightness or chest pain. Chest tube is still in place. No vomiting. No nausea. No abdominal pain. No urinary complaints. OBJECTIVE: GENERAL: Patient is awake, alert, oriented x3, coherent, afebrile, not in apparent respiratory distress. VITAL SIGNS: Temperature 97.7 with T-max of 98.2, heart rate of 76, blood pressure is 137/63, respiratory rate 17, saturation 93% on room air. EYES: No jaundice or pallor. EARS, NOSE, AND THROAT: No ear drainage. No nasal discharge. CHEST AND LUNGS: No wheezing. No rhonchi. Coarse crackles. CARDIOVASCULAR: S1, S2 distinct. Normal rate. Regular rhythm. ABDOMEN: Flabby. Positive bowel sounds. Soft. Nondistended, nontender. EXTREMITIES: No joint swelling. No cellulitis. LABORATORY: CBC done yesterday showed white count of 13.3, hemoglobin of 12, hematocrit is 35, platelet count is 388. Chemistry done yesterday showed sodium is 134, potassium is 4, chloride is 92, CO2 is 31, BUN is 12, creatinine 0.75, glucose 134, calcium is 9.3. Chest x-ray done today showed persistent apical pneumothorax right upper lobe, small. The chest tube appeared to be stable. ASSESSMENT: 1. RECURRENT SPONTANEOUS PNEUMOTHORAX, RIGHT SIDE. POSSIBLY RELATED TO RUPTURED APICAL BLEB OR BULLA RIGHT LUNG. STATUS POST CHEST TUBE PLACEMENT. Recommend referral to thoracic surgeon in [facility] for further evaluation and possible VATS, bleb resection and pleurodesis. Patient previously seen Dr. Ray from [facility]. 2. COPD/EMPHYSEMA - CURRENTLY NOT IN ACUTE EXACERBATION. 3. PULMONARY INFILTRATE RIGHT LOWER LOBE, POSSIBLE PNEUMONIC PROCESS. PLAN/RECOMMENDATIONS: 1. Continue Levaquin 500 mg tablet p.o. daily for about 10 days. 2. Continue Spiriva inhaler 2.5 mcg Respimat 2 puffs once daily. 3. Continue Advair 250/50 diskhaler 1 puff b.i.d. 4. Recommend pulmonary clinic followup in 4 weeks following hospital discharge from [facility], if transferred. 5. If you have any questions, please feel free to call me. Will sign off today. DICTATING PHYSICIAN: JEFFERSON MARTINEZ MD,SHAWN,MPH [id number] PHY#: [id number] ID: [id number] JOB#: [id number] ACCT: [id number] cc: > MTDD
[2018-04-11] MEDS: ALBUTEROL SULFATE 0.083% NEB 2.5 MG/3 ML AMPUL NEB PRN (14:16)
--- NOTE | 2018-04-11 14:51 | PDOC PROGRESS REPORT ---
Subjective Progress Note for:: 04/11/18 Subjective:: no c/o Reason For Visit: SPONTANEOUS PTX Physical Exam Vital Signs: Temp Pulse Resp BP Pulse Ox 98.1 F 74 14 136/62 H 97 04/11/18 10:58 04/11/18 14:16 04/11/18 14:16 04/11/18 10:58 04/11/18 14:16 Intake & Output 04/10/18 04/11/18 04/12/18 06:59 06:59 06:59 Intake Total 1245 576 Output Total 950 500 Balance 295 76 Weight 54.9 kg 56 kg Respiratory exam: PRESENT: clear to auscultation robby, other - right chest tube in place, no air leak Results Laboratory Results: 04/10/18 10:44 04/10/18 10:44 Impressions: Chest CT 04/09/18 00:00 IMPRESSION: No large bullae or blebs are identified. Bibasilar atelectasis. Tiny right anterior pneumothorax. Right chest tube in good positioning Biapical scarring with nodular scarring in the bilateral superior segments lower lobes. Chest X-Ray 04/11/18 07:00 IMPRESSION: COPD. STABLE RIGHT CHEST TUBE AND NO CHANGE IN THE SMALL RIGHT APICAL PNEUMOTHORAX. Assessment & Plan - Diagnosis (1) Pneumothorax Qualifiers: Pneumothorax type: unspecified pneumothorax Qualified Code(s): J93.9 - Pneumothorax, unspecified Is this a current diagnosis for this admission?: Yes (2) Recurrent spontaneous pneumothorax Is this a current diagnosis for this admission?: Yes - Plan Summary Plan Summary: A/ recurrent Right pneumothorax S/p chest tube placement CXray done today shows minimal right apical pneumothorax P/ place chest tube on water seal chest xray in 5 hrs: if no change, remove pleurovac and replace with Heilmich valve and discharge to home today f/u with [place] [facility] surgeon as outpatient next week Sponge bath only Routine Heilmich valve care Keep chest tube dressing clean/dry/intact no straining or liftin or smoking Avoid coughing/sneezing If no appointment with Thoracic Surgeon from [place], Follow up with General Surgery clinic (BABAR Kilpatrick) next week patient to have a chest Xray done ayt [facility] the day before General Surgery clinic appointment
--- NOTE | 2018-04-11 17:28 | RADIOLOGY REPORT (SQ) ---
EXAM DESCRIPTION: CHEST 2 VIEWS COMPLETED DATE/TIME: 04/11/2018 5:20 pm REASON FOR STUDY: Check Pneumothorax COMPARISON: 04/09/2018 NUMBER OF VIEWS: Two view TECHNIQUE: Frontal and lateral radiographic images of the chest acquired. LIMITATIONS: None. FINDINGS: LUNGS AND PLEURA: COPD. Apical scarring. No significant pneumothorax. MEDIASTINUM AND HILAR STRUCTURES: Stable heart size and mediastinal structures. HEART AND VASCULAR STRUCTURES: Stable appearance. SUPPORT DEVICES: Appropriate location without change. BONES: No acute findings. OTHER: No other significant finding. IMPRESSION: No significant pneumothorax. TECHNICAL DOCUMENTATION: JOB ID: [id number] [employer]- All Rights Reserved Reading location - IP/workstation name: [email or web address]
[2018-04-11] MEDS: FLUTICASONE NASAL SPRAY 50 MCG/SPRY 120 SPRAY/16 GM NASL SCH (17:30)
[2018-04-11 19:00] VITALS: BP 139/60
--- NOTE | 2018-04-15 11:26 | CONSULTATION REPORT E ---
Consultation Report NAME: KODY TORRES : 1950 AGE: 67Y DATE: 04/10/2018 414 A TO: JEFFERSON MARTINEZ M.D. FROM: [place] ALFORD, Requesting Physician HISTORY OF PRESENT ILLNESS: The patient is a 67-year-old male who came in on April 06 for chest pain, right sided, the chest x-ray and CT scan showing pneumothorax. Had a subsequent chest tube placement. Consulted for further evaluation of the patient. The patient claims he is feeling a lot better. Chest tube is still leaking air. The patient claimed that he is coughing yellow-green phlegm for the last several weeks. Denies any fever, chills. Had chest CT scan done on April 09 showing infiltrate in the right lower lobe. Antibiotics were not started yet. Patient was placed on Spiriva inhaler 2 puffs once daily. No vomiting. No diarrhea. No abdominal pain. No dysuria, hematuria. PAST MEDICAL HISTORY: 1. History of coronary artery disease. 2. Myocardial infarction. 3. Hypertension. 4. Has history of COPD. 5. Pneumonia. 6. Patient claimed that he had recurrent hemothoraces on the left with chronic chest tube placement. The last one was in July 2017. 7. Subsequent VATS with pleurodesis. 8. Claims that he had 2 pneumothoraces on the right side. The first one was in September 2017. Had a chest tube placement. No pleurodesis done and a second one this time. Also requiring chest tube placement. Denies any history of asthma or seizure or arthritis. He has history of cardiac cath, multiple chest tube placements, and VATS and pleurodesis at [facility] on the left side with Dr. Ray. SOCIAL HISTORY: The patient used to smoke a pack a day for several years. He denies any illicit drug use or alcohol abuse. MEDICATIONS: Include: 1. Albuterol inhaler. 2. Plavix. 3. Flonase. 4. Prilosec. ALLERGIES: Include: 1. SULFA. 2. VITAMINS. REVIEW OF SYSTEMS: CONSTITUTIONAL: No fever or chills. EYES: No visual disturbances. No jaundice. EARS: No ear drainage or hearing problems. NOSE, MOUTH, AND THROAT: No problems swallowing. Denies any sore throat. No neck pain. RESPIRATORY: Complaining of shortness of breath. Complains of positive coughing with yellow-green sputum for the last 2-3 weeks. CARDIAC: Has history of chest pain, palpitations. GASTROINTESTINAL: No abdominal pain, diarrhea, or constipation. GENITOURINARY: No dysuria, nocturia. MUSCULOSKELETAL: Lower back pain. SKIN: No rashes or itchiness. PHYSICAL EXAMINATION: GENERAL: The patient is awake, alert, oriented x3. VITAL SIGNS: A temperature of 97.6 with a T-max of 98.9, blood pressure is 133/53, respiratory rate of 18, saturation is 97% on nasal cannula. EYES: No jaundice or pallor. EARS, NOSE, AND THROAT: No ear drainage noted. No nasal discharge. CHEST AND LUNGS: No wheezing. No rhonchi. Coarse crackles. CARDIOVASCULAR: S1, S2 distinct. Normal rate. Regular rhythm. ABDOMEN: Flabby. Positive bowel sounds. Nondistended, nontender. EXTREMITIES: No joint swelling. No cellulitis. LABORATORY: CBC on 04/06/2018 showed a white count of 9.1, hemoglobin is 13.7, hematocrit is 41, platelet count is 424. Chemistry showed sodium is 139.4, potassium 4.9, chloride 100, CO2 of 30, BUN 11, creatinine 0.68, glucose 115, and calcium is 9.6. SGOT is 35, SGPT 37, and alkaline phos is 71. Chest x-ray showed a pneumothorax right side. Chest CT scan showed pneumothorax with right-sided chest tube on 04/09/2018. There is still a small amount of pneumothorax on the right side and an infiltrate on the right lower lobe suspicious for an infectious process or early pneumonia. ASSESSMENT: 1. Pneumothorax, right side, the second spontaneous pneumothorax. First one was in September of 2017. The patient would require a referral to patient's thoracic surgeon, Dr. Ray. The patient was seen by Dr. Ray in the past for the recurrent left pneumothoraces and VATS and pleurodesis were done on the left side. 2. COPD, emphysema, most likely severe. 3. Pneumonia, pulmonary infiltrate right lower lobe, suspicious for a pneumonic process. PLAN/RECOMMENDATIONS: 1. Start patient on Advair 250/50 diskhaler 1 puff b.i.d. 2. Continue Spiriva Respimat 2.5 mcg 2 puffs once daily. 3. Start patient on Levaquin 500 mg tablet p.o. daily for 10 days. 4. Recommend referral to patient's thoracic surgeon, Dr. Ray at [facility] for re-evaluation and possible VATS with pleurodesis on the right side. DICTATING PHYSICIAN: JEFFERSON MARTINEZ MD,SHAWN,MPH [id number] PHY#: [id number] ID: [id number] JOB#: [id number] ACCT: [id number] cc:JEFFERSON MARTINEZ M.D. > MTDD
--- NOTE | 2018-04-15 12:02 | DISCHARGE SUMMARY E ---
Discharge Summary NAME: KODY TORRES : 1950 AGE: 67Y ADMITTED: 04/06/2018 DISCHARGED: 04/11/2018 FINAL DIAGNOSIS: Recurrent right pneumothorax. PROCEDURE: Patient had right chest tube on April 06. COMPLICATIONS: None. HOSPITAL COURSE: This is a 67-year-old male with severe bilateral lung bullous disease who presented with dyspnea, chest pain on the right, found to have a recurrent right pneumothorax. He underwent a right thoracostomy tube placement on April 06. Following that, the pneumothorax had diminished, with persistence of a small apical pneumothorax despite the chest tube being placed on suction and in good position. The patient's chest tube was placed on water seal on April 11 with no increased or recurrent pneumothorax. Therefore, the Pleur-evac was disconnected and the chest tube was connected to an Heilmich. DISCHARGE ORDERS: The patient was discharged home on April 11. He was given a followup appointment in the surgery clinic next week with chest x-ray to be done on the same day. The patient was instructed to care for the Heilmich valve as per routine. Sponge bath only. No shower or water immerging until the chest tube is in place. The patient was instructed to make an appointment with the Thoracic Surgeon that the patient is familiar with in [facility] next week. Resume home medications. Diet and activities as tolerated, being mindful of the presence of the right chest tube. No straining, coughing, sneezing, or lifting for about 1 month. DICTATING PHYSICIAN: JHONATHAN LUNDBERG M.D. [id number] PHY#: [id number] ID: [id number] JOB#: [id number] ACCT: [id number] cc:JHONATHAN LUNDBERG M.D. E. RBora > [facility]
== END 2018-04-11 20:01 | disposition home or self-care (01) | DRG 201 ==
LOC: ER 10:03 → EH 12:36 → 4N 21:50
PROVIDERS: ADMIT Surgery; ATTEND Surgery
PROC: 0W9930Z Drainage of Right Pleural Cavity with Drainage Device, Percutaneous Approach (ICD-10-PCS; principal; 2018-04-06)
DX: J93.83 Other pneumothorax (principal); I25.10 Atherosclerotic heart disease of native coronary artery without angina pectoris; I10 Essential (primary) hypertension; J43.9 Emphysema, unspecified; M19.90 Unspecified osteoarthritis, unspecified site; I25.2 Old myocardial infarction; Z87.891 Personal history of nicotine dependence; Z88.2 Allergy status to sulfonamides; Z88.8 Allergy status to other drugs, medicaments and biological substances; Z79.51 Long term (current) use of inhaled steroids; Z79.899 Other long term (current) drug therapy
CPT/HCPCS: 36415; 71045; 71046; 71250; 80048; 80053; 84484; 85025; 93005; 93010; 94640; 99285; J1650; J2250; J2270; J2920; J2930; J3010; J3490; J7620; S0119

== ENCOUNTER → 2018-04-17 | Outpatient (CLI) | payer MEDICARE, MEDICAID ==
--- NOTE | 2018-04-17 14:37 | RADIOLOGY REPORT (SQ) ---
EXAM DESCRIPTION: CHEST PA/LATERAL COMPLETED DATE/TIME: 04/17/2018 2:28 pm REASON FOR STUDY: PNEUMOTHORAX,UNSPECIFIED COMPARISON: 04/11/2018 EXAM PARAMETERS: NUMBER OF VIEWS: two views TECHNIQUE: Digital Frontal and Lateral radiographic views of the chest acquired. RADIATION DOSE: NA LIMITATIONS: none FINDINGS: LUNGS AND PLEURA: The lungs are hyperexpanded. There is no infiltrate or effusion. No re sidual pneumothorax is seen. MEDIASTINUM AND HILAR STRUCTURES: No masses or contour abnormalities. HEART AND VASCULAR STRUCTURES: Heart normal size. No evidence for failure. BONES: No acute findings. HARDWARE: Thoracotomy tube in the right hemithorax. OTHER: No other significant finding. IMPRESSION: Chronic lung changes. No residual pneumothorax. Thoracotomy tube remains in place. TECHNICAL DOCUMENTATION: JOB ID: [id number] [employer]- All Rights Reserved Reading location - IP/workstation name: [email or web address]
== END ==
LOC: OD 14:12
PROVIDERS: ATTEND Physician Assistant Surgical
DX: J93.9 Pneumothorax, unspecified (principal)
CPT/HCPCS: 71046

== ENCOUNTER → 2019-01-07 | Outpatient (CLI) | payer MEDICARE, MEDICAID ==
--- NOTE | 2019-01-07 11:02 | RADIOLOGY REPORT (SQ) ---
EXAM DESCRIPTION: CT CHEST WITHOUT COMPLETED DATE/TIME: 01/07/2019 9:15 am REASON FOR STUDY: R91.8 OTHER NONSPECIFIC ABNORMAL FINDING OF LUNG FIELD R91.8 OTHER NONSPECIFIC AB NORMAL FINDING OF LUNG FIELD J98.11 ATELECTASIS J43.9 EMPHYSEMA, UNSPECIFIED COMPARISON: 04/09/2018 TECHNIQUE: CT scan performed of the chest without intravenous contrast. Images reviewed with lung, soft tissue and bone windows. Reconstructed coronal and sagittal MPR images reviewed. All images st ored on PACS. All CT scanners at this facility use dose modulation, iterative reconstruction, and/or weight based d osing when appropriate to reduce radiation dose to as low as reasonably achievable (ALARA). [facility]: Dose Right [facility]: CareDose [facility]: Dose Right [facility]: Teradose 4D [facility]: [employer] [facility] RADIATION DOSE: CT Rad equipment meets quality standard of care and radiation dose reduction techniq ues were employed. CTDIvol: 3.9 mGy. DLP: 162 mGy-cm. mGy. LIMITATIONS: No technical limitations. FINDINGS: LUNGS AND PLEURA: There is a 2.9 x 2.4 cm mass in the posterior right upper lobe abutting surgical scar. Moderate emphysema. No recurrent pneumothorax. No effusions. HILAR AND MEDIASTINAL STRUCTURES: No identified masses or abnormal nodes. No obvious aneurysm. HEART AND VASCULAR STRUCTURES: No aneurysm. No pericardial effusion. UPPER ABDOMEN: No significant findings. Limited exam. THYROID AND OTHER SOFT TISSUES: No masses. No adenopathy. BONES: Nothing acute. HARDWARE: None in the chest. OTHER: No other significant findings. IMPRESSION: Right upper lobe mass worrisome for carcinoma. Recommend correlation with PET-CT. COMMENT: Amenable to CT-guided biopsy, however considerable risk for pneumothorax. TECHNICAL DOCUMENTATION: JOB ID: [id number] Quality ID # [id number]: Final reports with documentation of one or more dose reduction techniques (e.g., Au tomated exposure control, adjustment of the mA and/or kV according to patient size, use of iterative reconstruction technique) 2010 [employer]- All Rights Reserved Reading location - IP/workstation name: [email or web address]
== END ==
LOC: RAD 09:00
PROVIDERS: ATTEND Internal Medicine Critical Care Medicine
DX: R91.8 Other nonspecific abnormal finding of lung field (principal); J98.11 Atelectasis; J43.9 Emphysema, unspecified
CPT/HCPCS: 71250

== ENCOUNTER → 2019-02-01 | Outpatient (CLI) | payer MEDICARE, MEDICAID ==
--- NOTE | 2019-02-02 13:30 | RADIOLOGY REPORT (SQ) ---
EXAM DESCRIPTION: PET CT SKULL/THIGH COMPLETED DATE/TIME: 02/01/2019 7:54 pm REASON FOR STUDY: (R91.1)SOLITARY PULMONARY NODULE R91.1 SOLITARY PULMONARY NODULE COMPARISON: None. RADIONUCLIDE AND DOSE: 10.9 mCi F18 FDG The route of agent administration: Intravenous FASTING BLOOD SUGAR: 92 mg/dl CONTRAST TYPE AND DOSE: No CT contrast given. TECHNIQUE: Blood glucose level was verified. Above dose of FDG was injected intravenously. 2-D seg mented attenuation correction images were obtained from the base of the skull to the midthighs. Nonc ontrast CT images were obtained for attenuation correction and fusion with emission images. CT image s were performed without oral or intravenous contrast and are not sensitive for parenchymal lesions. A series of overlapping emission PET images were obtained. Images reviewed and manipulated at [facility] work station by the radiologist. Images stored on PACS. LIMITATIONS: None. FINDINGS: HEAD AND NECK: No areas of abnormal metabolic activity in the soft tissues of the head and neck. CHEST: Hypermetabolic right upper lobe mass measuring 2.9 x 2.4 cm and 19.6 SUV. No adenopathy. ABDOMEN AND PELVIS: No areas of abnormal metabolic activity in the abdomen or pelvis. Expected physi ologic activity is present in the genitourinary system and bowel. PROXIMAL LOWER EXTREMITIES: No areas of abnormal metabolic activity in the soft tissues of the lower extremities. BONES: No abnormal metabolic activity in the visualized skeleton. ADDITIONAL CT FINDINGS: No additional significant findings on the noncontrast CT images. OTHER: No other significant findings. IMPRESSION: Hypermetabolic right upper lobe mass amenable to CT-guided biopsy. No evidence of metas tatic disease. TECHNICAL DOCUMENTATION: JOB ID: [id number] [employer]- All Rights Reserved Reading location - IP/workstation name: [email or web address]
== END ==
LOC: RAD 17:22
PROVIDERS: ATTEND Internal Medicine Critical Care Medicine
DX: R91.1 Solitary pulmonary nodule (principal); Z90.2 Acquired absence of lung [part of]; J44.9 Chronic obstructive pulmonary disease, unspecified
CPT/HCPCS: 78815; A9552